=== PATIENT | male | born 1985 | race Two or more races ===

== ENCOUNTER 2017-06-13 02:34 | Emergency (ER) | payer OTHER ==
[2017-06-13 02:40] VITALS: BP 157/101; PULSE 67; RESP 20; TEMP 97.5; O2SAT 97
[2017-06-13] MEDS ORDERED: DEXAMETHASONE 10 MG/ML VIAL PO ONE (03:02)
--- NOTE | 2017-06-13 03:02 | EDPHY ---
H & P Stated Complaint: fever x 2 days, sore throat, pain on roof of mouth Time Seen by Provider: 06/13/17 02:50 HPI/ROS: HPI The patient presents with sore throat for the last 2 days which has been intermittent, moderate in severity and associated with subjective fevers. He also describes a pain on the roof of his mouth that started in the similar time course. He denies any toothache. He denies any sick contacts.. REVIEW OF SYSTEMS Constitutional: No fever, no chills. Eyes: No discharge. ENT: Positive for sore throat Cardiovascular: No chest pain, no palpitations. Respiratory: No cough, no shortness of breath. Gastrointestinal: No abdominal pain, no vomiting. Genitourinary: No hematuria. Musculoskeletal: No back pain. Skin: No rashes. Neurological: No headache. PMHx: Hypertension, no diabetes Soc Hx: No drug use PHYSICAL General Appearance: Alert, no distress Eyes: Pupils equal and round no pallor or injection ENT, Mouth: Mucous membranes moist, posterior pharynx is erythematous without exudates, uvula is midline, hard palate of the mouth is nontender to palpation with no areas of fluctuance or erythema Respiratory: There are no retractions, lungs are clear to auscultation Cardiovascular: Regular rate and rhythm Gastrointestinal: Abdomen is soft and non-tender, no masses, bowel sounds normal Neurological: A&O, moves all extremities Skin: Warm and dry, no rashes Musculoskeletal: Neck is supple non tender Extremities: symmetrical, full range of motion Psychiatric: Patient is oriented X 3, there is no agitation Source: Patient Exam Limitations: No limitations - Medical/Surgical History Hx Asthma: No Hx Chronic Respiratory Disease: No Hx Diabetes: No Hx Cardiac Disease: No Hx Renal Disease: No Hx Cirrhosis: No Hx Alcoholism: No Hx HIV/AIDS: No Hx Splenectomy or Spleen Trauma: No Other PMH: htn, kidney problem - Social History Smoking Status: Never smoked Constitutional: Initial Vital Signs Temperature (C) 36.4 C 06/13/17 02:37 Heart Rate 67 06/13/17 02:37 Respiratory Rate 20 06/13/17 02:37 Blood Pressure 157/101 H 06/13/17 02:37 O2 Sat (%) 97 06/13/17 02:37 O2 Delivery Mode Room Air Allergies/Adverse Reactions: No Known Allergies Allergy (Verified 06/13/17 02:37) Home Medications: Medication Instructions Recorded Unknown Blood Pressure Medication 01/26/15 Unknown Kidney Medication 01/26/15 predniSONE 60 mg PO DAILY #15 tab 01/26/15 Medical Decision Making Differential Diagnosis: This is a 31-year-old male with hypertension who presents with 2 days of sore throat, subjective fevers, pain to the roof of his mouth. On exam, he has normal vital signs except for elevated blood pressure which is known for him, his posterior pharynx is erythematous without exudate. Differential diagnosis includes dental abscess, strep pharyngitis, viral pharyngitis, less likely due space neck infection. Given the patient does not meet CENTOR criteria, I feel viral pharyngitis is the most likely diagnosis given his erythematous pharynx. I will treat him with a dose of Decadron here and have given him instructions for ibuprofen and Tylenol. He will be discharged home with follow up as needed. - Data Points Medications Given: Discontinued Medications Dexamethasone (Decadron Injection) 10 mg PO EDNOW ONE Stop: 06/13/17 03:03 Last Admin: 06/13/17 03:15 Dose: 10 mg Departure - Departure Disposition: Home, Routine, Self-Care Clinical Impression: Acute pharyngitis Qualifiers: Pharyngitis/tonsillitis etiology: unspecified etiology Qualified Code(s): J02.9 - Acute pharyngitis, unspecified Condition: Good Instructions: Pharyngitis (ED) Additional Instructions: You should see your doctor in 1-2 days if your sore throat is not better. Referrals: Lily Cherry PA [Primary Care Provider] - As per Instructions
== END 2017-06-13 03:18 | disposition home or self-care (01) ==
DX: J02.9 Acute pharyngitis, unspecified (principal); I10 Essential (primary) hypertension
CPT/HCPCS: J1100

== ENCOUNTER 2017-11-23 16:30 | Inpatient (IN) | payer OTHER ==
[2017-11-23] MEDS ORDERED: NS 1,000 ML IV ONE (16:54)
--- NOTE | 2017-11-23 17:07 | EDPHY ---
H & P Stated Complaint: hyperkalemia Time Seen by Provider: 11/23/17 16:49 HPI/ROS: CHIEF COMPLAINT: Hyperkalemia HISTORY OF PRESENT ILLNESS: The patient is a 32-year-old man with a history of malignant hypertension with resultant chronic renal insufficiency as well as CHF. He had routine lab work done yesterday and his wellness nurse was called today by [facility] stating that his potassium was 6.4. The patient was told to come to the ER. He states that he is asymptomatic. His wellness nurse is Dr. Jones. His nephrology clinic did send paperwork over including lab work from yesterday that states his potassium was 4.8. REVIEW OF SYSTEMS: Constitutional: denies: chills, fever, recent illness, recent injury EENTM: denies: blurred vision, double vision, nose congestion Respiratory: denies: cough, shortness of breath Cardiac: denies: chest pain, irregular heart rate, lightheadedness, palpitations Gastrointestinal/Abdominal: denies: abdominal pain, diarrhea, nausea, vomiting, blood streaked stools Genitourinary: denies: dysuria, frequency, hematuria, pain Musculoskeletal: denies: joint pain, muscle pain Skin: denies: lesions, rash, jaundice, bruising Neurological: denies: headache, numbness, paresthesia, tingling, dizziness, weakness Hematologic/Lymphatic: denies: blood clots, easy bleeding, easy bruising Immunologic/allergic: denies: HIV/AIDS, transplant EXAM: GENERAL: Well-appearing, well-nourished and in no acute distress. HEAD: Atraumatic, normocephalic. EYES: Pupils equal round and reactive to light, extraocular movements intact, sclera anicteric, conjunctiva are normal. ENT: TMs normal, nares patent, oropharynx clear without exudates. Moist mucous membranes. NECK: Normal range of motion, supple without lymphadenopathy or JVD. LUNGS: Breath sounds clear to auscultation bilaterally and equal. No wheezes rales or rhonchi. HEART: Regular rate and rhythm without murmurs, rubs or gallops. ABDOMEN: Soft, nontender, normoactive bowel sounds. No guarding, no rebound. No masses appreciated. BACK: No CVA tenderness, no spinal tenderness, step-offs or deformities EXTREMITIES: Normal range of motion, no pitting or edema. No clubbing or cyanosis. NEUROLOGICAL: Cranial nerves II through XII grossly intact. Normal speech, normal gait. 5/5 strength, normal movement in all extremities, normal sensation PSYCH: Normal mood, normal affect. SKIN: Warm, dry, normal turgor, no visible rashes or lesions. Source: Patient Exam Limitations: No limitations - Personal History Current Tetanus/Diphtheria Vaccine: Yes Current Tetanus Diphtheria and Acellular Pertussis (TDAP): Yes - Medical/Surgical History Hx Asthma: No Hx Chronic Respiratory Disease: No Hx Diabetes: No Hx Cardiac Disease: No Hx Renal Disease: Yes Hx Cirrhosis: No Hx Alcoholism: No Hx HIV/AIDS: No Hx Splenectomy or Spleen Trauma: No Other PMH: htn, kidney problem - Family History Significant Family History: No pertinent family hx - Social History Smoking Status: Never smoked Alcohol Use: Sober Drug Use: None Constitutional: Initial Vital Signs Temperature (C) 36.9 C 11/23/17 16:40 Heart Rate 67 11/23/17 16:40 Respiratory Rate 16 11/23/17 16:40 Blood Pressure 135/91 H 11/23/17 16:40 O2 Sat (%) 96 11/23/17 16:40 O2 Delivery Mode Room Air Allergies/Adverse Reactions: No Known Allergies Allergy (Verified 11/23/17 16:38) Home Medications: Medication Instructions Recorded Calcium Carbonate [Tums 500MG (*)] 500 mg PO BIDMEAL 11/23/17 Carvedilol [Coreg (*)] 25 mg PO BIDMEAL 11/23/17 Cholecalciferol Vit D3 [Vitamin D3 2,000 units PO DAILY 11/23/17 (*)] Furosemide [Lasix 40 MG (*)] 40 mg PO DAILY 11/23/17 Lisinopril [Zestril 10 mg (*)] 10 mg PO DAILY 11/23/17 Sodium Bicarbonate [Na Bicarb 650 1,300 mg PO TID 11/23/17 MG (RX)] amLODIPine BESYLATE [Amlodipine 10 mg PO DAILY 11/23/17 Besylate] Medical Decision Making - Diagnostics EKG Interpretation: An EKG obtained and was read and documented in trace view. Please see trace view for full reading and report. Sinus rhythm, no peaked T-waves ED Course/Re-evaluation: 5:30 p.m. the patient's potassium is elevated and his creatinine as well. I will give him IV fluids and Lasix and admit to the medical service. I discussed the case with Dr. Collette Mcdonald who agrees. I have paged [facility]. 5:50 p.m. I discussed the case with Dr. Gaviria who will consult. Differential Diagnosis: Partial list of the Differential diagnosis considered include but were not limited to; hyperkalemia, renal insufficiency, dehydration and although unlikely based on the history and physical exam, I also considered heart failure , infection. Critical Care Time: Critical care time spent by me, Dr. Lance exclusive with this patient was 35 minutes, exclusive of the PA time exclusive of procedures. The organ system that was at risk was cardiovascular and I gave IV fluids, monitoring, admission to prevent worsening of the patient's condition - Data Points Laboratory Results: Laboratory Results 11/23/17 17:05 11/23/17 17:05 Medications Given: Amlodipine Besylate (Norvasc) 10 mg PO DAILY DRU Stop: 05/23/18 08:59 Last Admin: 11/24/17 08:57 Dose: 10 mg Calcium Carbonate (Tums) 500 mg PO BIDMEAL DRU Stop: 05/23/18 07:59 Last Admin: 11/24/17 08:57 Dose: 500 mg Carvedilol (Coreg) 25 mg PO BIDMEAL DRU Stop: 05/23/18 07:59 Last Admin: 11/24/17 08:59 Dose: 25 mg Cholecalciferol (Vitamin D) 2,000 units PO DAILY DRU Stop: 05/23/18 08:59 Last Admin: 11/24/17 08:59 Dose: 2,000 units Furosemide (Lasix Injection) 80 mg IVP BIDDIUR DRU Stop: 05/23/18 14:59 Last Admin: 11/24/17 15:49 Dose: 80 mg Heparin Sodium (Porcine) (Heparin Sc Injection) 5,000 unit SC Q8 DRU Stop: 05/22/18 21:59 Last Admin: 11/24/17 15:51 Dose: 5,000 unit Sodium Bicarbonate (Na Bicarb) 1,950 mg PO TID DRU Stop: 05/22/18 21:59 Last Admin: 11/24/17 15:50 Dose: 1,950 mg Discontinued Medications Furosemide (Lasix Injection) 40 mg IVP EDNOW ONE Stop: 11/23/17 17:43 Last Admin: 11/23/17 17:58 Dose: 40 mg Furosemide (Lasix Injection) 80 mg IVP ONCE ONE Stop: 11/24/17 09:57 Last Admin: 11/24/17 11:47 Dose: 80 mg Sodium Chloride (Ns) 1,000 mls @ 0 mls/hr IV ONCE ONE; Wide Open PRN Reason: Protocol Stop: 11/23/17 16:55 Last Admin: 11/23/17 17:58 Dose: 1,000 mls Sodium Polystyrene Sulfonate (Kayexalate) 30 gm PO ONCE ONE Stop: 11/23/17 18:57 Last Admin: 11/23/17 22:28 Dose: 30 gm Departure - Departure Disposition: [facility] Clinical Impression: Hyperkalemia, Renal insufficiency Condition: Fair
[2017-11-23 17:19] LABS: PLATELET COUNT 252 10^3/uL (150-400)
--- NOTE | 2017-11-23 17:24 | CPEKG ---
Heart Rate: 70 RR Interval: 857 P-R Interval: 196 QRSD Interval: 100 QT Interval: 396 QTC Interval: 428 P [place]: 24 QRS [place]: 25 T Wave [place]: 30 EKG Severity - ABNORMAL ECG - EKG Impression: SINUS RHYTHM EKG Impression: INFERIOR INFARCT, OLD Electronically Signed By: Osvaldo Lance 23-Nov-2017 17:27:29
[2017-11-23] MEDS ORDERED: FUROSEMIDE 40 MG/4 ML VIAL IVP ONE (17:42)
[2017-11-23] MEDS ORDERED: SODIUM POLY SULF 15 GM/60 ML BOTTLE PO ONE (18:56)
[2017-11-23] MEDS ORDERED: ACETAMINOPHEN 325 MG TAB PO PRN (19:12)
[2017-11-23] MEDS ORDERED: ONDANSETRON 4 MG/2 ML VIAL IVP PRN (19:12)
[2017-11-23] MEDS ORDERED: hydrALAZINE 20 MG/ML VIAL IVP PRN (19:16)
--- NOTE | 2017-11-23 19:42 | GHP ---
[f rep st] HISTORY AND PHYSICAL DATE OF ADMISSION: 11/23/2017 CHIEF COMPLAINT: Abnormal labs. HISTORY: The patient is a 32-year-old male with a known history of chronic kidney disease, following with Dr. Jones. He had routine laboratory studies done yesterday. Potassium was found to be 6.4, so he was called to come to the emergency room. He is completely asymptomatic. He denies any chest pain or shortness of breath. There is no lower extremity edema. He denies any noncompliance with h is medications. He denies any recent nausea, vomiting or decreased p.o. intake. I spoke with Dr. Wicho lazo, who reveals that the patient is known to be approaching end-stage renal disease for quite so me time, and they were proceeding towards peritoneal dialysis as an outpatient. PAST MEDICAL HISTORY: 1. Chronic kidney disease approaching end-stage renal disease. 2. Malignant hypertension. 3. Congestive heart failure, ejection fraction 33%. 4. Nonischemic dilated cardiomyopathy. MEDICATIONS: Please see computerized record for full detailed list. ALLERGIES: No known drug allergies. SOCIAL HISTORY: No smoking. No alcohol. He lives with his . REVIEW OF SYSTEMS: Complete review of systems obtained. Review of systems is negative for constitut ional, HEENT, GI, pulmonary, cardiovascular, , hematology, skin, musculoskeletal, endocrine, psych, except for positives and negatives as in HPI. FAMILY HISTORY: Reviewed and noncontributory to presenting complaint. PHYSICAL EXAMINATION: GENERAL: Well-developed, well-nourished male, in no acute distress. VITAL SI GNS: Temperature 36.9, pulse 67, blood pressure 135/91, saturating 96% on room air. HEENT: Normal conjunctivae. Pupils equal and reactive to light. ENT: Normal ears and nose. Hearing intact. Nor mal lips and teeth. Oropharynx moist neck. Trachea midline. No thyromegaly. CHEST: Normal respir atory effort. Lungs clear to auscultation bilaterally. CARDIOVASCULAR: Regular rate and rhythm. N o murmur. No lower extremity edema. ABDOMEN: Soft, nontender. No hepatosplenomegaly. SKIN: Warm , dry, and intact. No rash. MUSCULOSKELETAL: No cyanosis or clubbing. Strength 5/5, upper and low er extremities. NEUROLOGIC: Cranial nerves intact. Normal sensation to light touch. PSYCH: Alert and oriented x3. Normal affect. Normal judgment and insight. Normal memory. LABORATORY DATA: White count 7.2, hematocrit 39.8, platelets 252. Sodium 140, potassium 6.3, chlori de 108, bicarb 18, BUN 60, creatinine 6.3, glucose 89. EKG viewed by me. My personal interpretation is normal sinus rhythm, no peaked T-waves. ASSESSMENT/PLAN: 1. End-stage renal disease. I spoke with Dr. Gaviria. They are moving towards peritoneal dialysi s initiation soon. He does not yet have a catheter per Dr. Gaviria. Give him a dose of Kayexalate tonight, as well as initiating him on oral sodium bicarbonate and will hold his lisinopril. 2. Hyperkalemia, treatment as above per Dr. Gaviria. No more emergent treatment needed at this ti me as he does not have any EKG changes. We will check q.6 hour BMPs. 3. Malignant hypertension. Need to clarify his home medication regimen. 4. Congestive heart failure. Ejection fraction 33% due to nonischemic cardiomyopathy. Need to hold his MARJ inhibitor secondary to hyperkalemia. CODE STATUS: Full. ADMISSION STATUS: Will admit to inpatient as he is medically complex. Anticipate greater than 2 mid nights required for stabilization. DVT PROPHYLAXIS: He is moderate risk. Will place him on subcu heparin. /[id number]/MODL
--- NOTE | 2017-11-23 21:03 | GCON ---
[f rep st] CONSULTATION DATE OF CONSULTATION: 11/23/2017 REASON FOR CONSULTATION: Worsening renal failure, hyperkalemia. HISTORY OF PRESENT ILLNESS: The patient is a very pleasant, 32-year-old male with a past medical his tory significant for known advanced chronic kidney disease secondary to malignant hypertension, along with a nonischemic dilated cardiomyopathy, who now presents with hyperkalemia. History is obtained from the patient, as well as the medical staff and the medical record. The patient is followed by Dr Bernadette Jones of [facility]. He has known CKD 5 and is active on the [facility] t ransplant list. He originally presented to [facility] with congestive heart failure and malignant hypertension in 2008. He has known low-grade proteinuria. His creatinine has been gradually rising over time. He has had discussions relating to eventual initiation of peritoneal dialysis. At the time of his last visit in August, his creatinine was 5.66, his potassium was 5.4, and his bi carb level was 18. His protein-creatinine ratio was 2220 mg of protein per gram creatinine. His blo od pressure at the time of that visit was 128/80. Because of the patient's cardiomyopathy and his re nal failure, he is maintained on Lan inhibition. He has been instructed on following a low-potassium diet. Today, the patient received routine labs as an outpatient. On these, his potassium was elevated at 6 .4, his creatinine was also in the 6s. Relating to this, he was referred to the emergency room. In the emergency room, the patient is asymptomatic and normotensive. His potassium is 6.2. An EKG does not show significant hyperkalemic changes. Overall, the patient is doing okay. He does not report any significant new issues. He does admit to having some difficulty following his low-potassium diet. He states he has been compliant with medic ations. As related to the above issues, we are asked by Dr. Lance to assist in the patient's renal diagnosi s and management. PAST MEDICAL HISTORY: 1. Chronic kidney disease. Believed secondary to malignant hypertension. 2. Hypertension. 3. Nonischemic dilated cardiomyopathy. 4. Metabolic acidosis. 5. History of hyperkalemia. 6. Active on [facility] transplant list since 2015. SURGICAL HISTORY: No past surgeries. FAMILY HISTORY: Negative for renal disease or heart disease. SOCIAL HISTORY: The patient lives in [place]. He is . He has 4 children. He works with [employer]. He does not smoke cigarettes. He rarely drinks alcohol. ALLERGIES: No known drug allergies. HOME MEDICATIONS: Tums 500 mg p.o. b.i.d., vitamin D 2000 units b.i.d., lisinopril 10 mg daily. Car vedilol 25 mg twice b.i.d., Lasix 40 mg daily, sodium bicarbonate 1950 mg b.i.d. Amlodipine 10 mg da [place]. REVIEW OF SYSTEMS: A 12 systems review was obtained. It is negative except for some mild edema. PHYSICAL EXAM: GENERAL: At time of exam, the patient is pleasant appropriate and alert. VITAL SIGN S: Temperature afebrile, pulse 68, blood pressure 137/102. HEENT: Eyes: Sclerae clear. Oropharynx clear. NECK: No lymphadenopathy, thyromegaly, or jugular v enous distention at 45 degree supine angle. LUNGS: Clear auscultation bilaterally. CARDIOVASCULAR: Regular rate and rhythm without murmurs, gallops, or rubs. ABDOMEN: Nontender. No organomegaly. /RECTAL: Deferred. EXTREMITIES: Trace to 1+ lower extremity edema. INTEGUMENT: Generally aura r. NEURO: No focal findings. LABORATORY STUDIES: White count 7.2, hematocrit 39.8, platelets 252. Sodium 140, potassium 6.3, bic arb 18, creatinine 6.3. IMPRESSION AND PLAN: 1. Hyperkalemia and advancing renal failure. The patient presents this evening with a potassium of 6.3. He is asymptomatic. He is mildly volume overloaded. His electrocardiogram does not show hyper kalemic changes. 2. For now, the patient will be placed on a potassium-restricted diet. His lisinopril will be held. He was given 1 dose of intravenous Lasix and he will be maintained on his home oral diuretics. His sodium bicarbonate level will be Increased. He will be given 1 dose of Kayexalate. Repeat labs acssandra l be followed up tonight. At this point, the patient will likely need to be discharged off his lisin opril. He may need substitution with a different medication for afterload reduction relating to his cardiomyopathy. Serious consideration should be made for placement of his peritoneal dialysis cathet er with plans on beginning this soon. He will be educated further on a low-potassium diet. The lisset ent does not appear to have indications for emergent dialysis tonight and I believe his potassium fish uld decrease over the course of the evening with the above measures. 3. Cardiomyopathy. This has been stable. Again, he will need afterload reduction if his angiotensi n-converting enzyme inhibitor is discontinued. He should be maintained on his beta blockade. He cou ld use some additional diuresis. 4. Anemia. This is quite mild, relative to his kidney dysfunction. We will continue to monitor suzette miranda. Thank you for allowing us participate in this gentleman's care. We will continue to follow him close ly with you. /[id number]/MODL
[2017-11-23] MEDS: SODIUM BICARBONATE 650 MG TAB PO SCH (22:28)
[2017-11-23] MEDS: HEPARIN 5,000 UNIT/0.5 ML SYR SC SCH (22:29)
[2017-11-24 04:17] LABS: PLATELET COUNT 230 10^3/uL (150-400)
[2017-11-24 04:26] LABS: INR 1.04 (0.83-1.16); PROTIME(PATIENT) 13.8 SEC (12.0-15.0)
[2017-11-24] MEDS: HEPARIN 5,000 UNIT/0.5 ML SYR SC SCH ×2 (05:59→15:51)
[2017-11-24] MEDS: CALCIUM CARBONATE 500 MG CHEWABLE TAB PO SCH ×2 (08:57→17:59)
[2017-11-24] MEDS: SODIUM BICARBONATE 650 MG TAB PO SCH ×3 (08:57→21:45)
[2017-11-24] MEDS: CARVEDILOL 25 MG TAB PO SCH ×2 (08:59→17:59)
[2017-11-24] MEDS: CHOLECALCIFEROL VIT D3 1,000 UNITS TAB PO SCH (08:59)
--- NOTE | 2017-11-24 09:11 | PDMN ---
Medical Necessity Medical necessity: M326 - ARF A-2 days: Serum Cr > 4, hyperkalemia( 6.3) cont to monitor, ESRD consider peritoneal dialysis, malignant HTN, monitoring, CHF - EF 33% due to nonischemic cardiomyopathy, hold MARJ inhibitor 2ndary to Hyperkalemia, - anticipate > 2 midnights ongoing med [facility] care
--- NOTE | 2017-11-24 09:49 | ASMTCASEMG ---
Living Arrangements What is your living Answers: With Spouse arrangement? Who do you live with? Type Of Residence What kind of residence do Answers: House you live in? Discharge Plan Comments Coordination Status Comments Notes: Pt is a 32 y/o man admitted for hyperkalemia and renal insufficiency. Pt will most likely d/c independent when medically stable. No therapies ordered at this time. CM available for changes. Plan: Independent Date Signed: 11/24/2017 09:49 AM Electronically Signed By:ANA Almonte
[2017-11-24] MEDS ORDERED: FUROSEMIDE 100 MG/10 ML VIAL IVP ONE (09:56)
--- NOTE | 2017-11-24 13:22 | SOAPPROG ---
SOAP Progress Note Assessment/Plan: Assessment/Plan: The patient is a 32 y/o M with a known h/o malignant HTN and CKD Stage IV/V who presented yesterday for hyperkalemia, now improved with medical therapy. CKD Stage V -Cr currently 6.2mg/dL with eGFR of 10 -already on [facility] txp list -consulted Dr. Leigh to see patient today for possible PD catheter placement on this admission -no acute indication for HD today Hyperkalemia -will need to follow a more strict low K+/renal diet -continue lasix and may need to double dose so 120-160mg po BID as outpatient until starting dialysis -continue to monitor on telemetry -hold MARJ inhibition -hold kayexalate for now, will school guidance counselor patient and decide if needs as home regimen AGMA -2/2 to renal failure -started bicarb tabs BID -goal >20mg/dL HTN/vol -h/o malignant HTN, BP now controlled -holding MARJ, continue CCB, BB, and may consider more afterload reduction such as hydralazine BMD -currently on vitamin D and TUMS for phos binder -monitor daily labs 11/24/17 13:24 Subjective: Patient made 2L of UO overnight and feeling ok today. No chest pain, palpitations or SOB. Discussed PD catheter consult and that surgeon will be seeing him. Objective: Vital Signs Temp Pulse Resp BP Pulse Ox 37.0 C 70 16 125/99 H 95 11/24/17 11:49 11/24/17 11:49 11/24/17 11:49 11/24/17 11:49 11/24/17 11:49 Laboratory Results 11/24/17 03:52 11/24/17 03:52 11/23/17 11/24/17 11/25/17 05:59 05:59 05:59 Intake Total 2000 500 Output Total 2100 400 Balance -100 100 PT 13.8 SEC (12.0-15.0) 11/24/17 03:52 INR 1.04 (0.83-1.16) 11/24/17 03:52 Physical Exam - Physical Exam General Appearance: WD/WN, alert, no apparent distress EENT: PERRL/EOMI, normal ENT inspection, TMs normal Neck: non-tender, full range of motion, supple Respiratory: chest non-tender, lungs clear, normal breath sounds Cardiac/Chest: normal peripheral pulses, regular rate, rhythm Abdomen: normal bowel sounds, non-tender, soft Back: Normal inspection Skin: normal color, warm/dry Extremities: normal range of motion, non-tender Neuro/Psych: no motor/sensory deficits, alert, normal mood/affect, oriented x 3 ICD10 Worksheet Patient Problems: Problems Problem Status Onset Hyperkalemia Acute Renal insufficiency Acute
--- NOTE | 2017-11-24 14:20 | SOAPPROG ---
SOAP Progress Note Assessment/Plan: Assessment: 32-year-old male with increasing renal insufficiency In need of PD catheter/risks and options fully discussed Abdomen soft no previous surgery Potassium improved Plan: PD catheter in the a.m. 11/24/17 14:18 Objective: Vital Signs Temp Pulse Resp BP Pulse Ox 37.0 C 70 16 125/99 H 95 11/24/17 11:49 11/24/17 11:49 11/24/17 11:49 11/24/17 11:49 11/24/17 11:49 Laboratory Results 11/24/17 03:52 11/24/17 03:52 11/23/17 11/24/17 11/25/17 05:59 05:59 05:59 Intake Total 2000 500 Output Total 2100 400 Balance -100 100 PT 13.8 SEC (12.0-15.0) 11/24/17 03:52 INR 1.04 (0.83-1.16) 11/24/17 03:52 ICD10 Worksheet Patient Problems: Problems Problem Status Onset Hyperkalemia Acute Renal insufficiency Acute
[2017-11-24] MEDS: FUROSEMIDE 100 MG/10 ML VIAL IVP SCH (15:49)
--- NOTE | 2017-11-24 19:57 | GCON ---
[f rep st] CONSULTATION DATE OF CONSULTATION: 11/24/2017 HISTORY OF PRESENT ILLNESS: The patient is a 32-year-old male who is having worsening progressive re nal failure. He was admitted for elevated potassium which has been corrected. He is in need of justino toneal dialysis catheter to, hopefully, initiate dialysis in the next 4-6 weeks. His renal failure m ay be on the basis of hypertension, but he was unclear. He is presently stable. Risks and options w ere fully discussed and he wishes to proceed with peritoneal dialysis catheter placement. PAST MEDICAL HISTORY: Includes chronic renal failure, hypertension, hyperkalemia, nonischemic cardio myopathy. He has had no other major surgeries or hospitalizations. FAMILY HISTORY: Noncontributory. PHYSICAL EXAMINATION: GENERAL: Reveals an alert 32-year-old male in no acute distress. HEAD/NECK: Benign without icterus, adenopathy or oral lesions. CHEST: Clear. CARDIAC: Regular rhythm. ABDO MEN: Soft and nontender without surgical scars or hernias. EXTREMITIES: Benign. Full pulses. Ful l range of motion. IMPRESSION: Progressive chronic renal failure. PLANS: Peritoneal dialysis catheter placement. Risks and options have been fully discussed and he w paras to proceed. /[id number]/MODL
--- NOTE | 2017-11-24 20:06 | HOSPPROG ---
Hospitalist Progress Note Assessment/Plan: Assessment: 32-year-old male presents with acute hyperkalemia in the setting of end-stage renal disease Plan: 1. End-stage renal disease. Patient with known chronic kidney disease stage 5, and EGFR around 10, previously on MARJ-inhibitor, diuretics, sodium bicarb tabs, labs in the outpatient setting demonstrating a potassium 6.5 and increase of creatinine level to greater than 6 -suspect the patient's condition is progressing, he continues to produce urine -discussed with Dr. Prosper Benítez, she recommends IV Lasix high dose for hyperkalemia -Tums and vitamin-D as phos binders -peritoneal dialysis catheter to be placed by Dr. Leigh tomorrow -no indication for emergent renal replacement therapy -patient will require outpatient peritoneal dialysis follow-up and arrangements 2. Acute hyperkalemia. Secondary to end-stage renal disease, responded to a combination of IV Lasix as well as Kayexalate -give high-dose IV Lasix, continue to monitor -if worsening despite Lasix, give Kayexalate again -continue monitor on telemetry, no evidence of peaked T-waves, personally interpreted 3. Metabolic acidosis. Acute on chronic, secondary to renal failure, increased sodium bicarb tabs 4. Anemia of chronic kidney disease. No evidence of active bleeding 5. Chronic systolic congestive heart failure. No evidence of acute exacerbation , currently holding MARJ-inhibitor given his worsening renal function and hyperkalemia -continue monitor volume status Diet. Renal, NPO in a.m. Prophylaxis. High risk patient, heparin subcu, hold in a.m. Code. Full Disposition. Anticipated discharge is uncertain, peritoneal dialysis catheter placement tomorrow, further recommendations per Renal. High-level medical complexity, high risk patient for worsening morbidity and/or mortality, secondary to the issues outlined above, specifically his acute hyperkalemia. Subjective: Patient reports that he has continued to urinate, had loose bowel movement after Kayexalate last night Objective: Vital Signs Temp Pulse Resp BP Pulse Ox 37 C 88 15 124/95 H 94 11/24/17 19:21 11/24/17 19:21 11/24/17 19:21 11/24/17 19:21 11/24/17 19:21 Laboratory Results 11/24/17 03:52 11/24/17 03:52 11/23/17 11/24/17 11/25/17 05:59 05:59 05:59 Intake Total 1999 1749 Output Total 2099 1700 Balance -100 50 PT 13.8 SEC (12.0-15.0) 11/24/17 03:52 INR 1.04 (0.83-1.16) 11/24/17 03:52 - Physical Exam Constitutional: no apparent distress, appears nourished, not in pain, No uncomfortable Cardiovascular: systolic murmur (106 at sternum), edema (Trace bilateral lower extremity), No irregularly irregular, No JVD, No tachycardia Respiratory: no respiratory distress, no rales or rhonchi, clear to auscultation Gastrointestinal: normoactive bowel sounds, soft, non-tender abdomen, no palpable masses, No distension Neurologic: AAOx3, sensation intact bilaterally, No weakness Psychiatric: interacting appropriately, not anxious, not encephalopathic, thought process linear ICD10 Worksheet Patient Problems: Problems Problem Status Onset Hyperkalemia Acute Renal insufficiency Acute
[2017-11-25] MEDS ORDERED: ceFAZolin 2 GM/DEXTROSE 100 ML IV ONE (06:00)
[2017-11-25] MEDS ORDERED: ceFAZolin 2 GM/SWFI 2 GM/20 ML SYR IVP ONE ×2 (06:00)
[2017-11-25] MEDS: SODIUM BICARBONATE 650 MG TAB PO SCH ×3 (09:57→19:50)
[2017-11-25] MEDS: CALCIUM CARBONATE 500 MG CHEWABLE TAB PO SCH ×2 (09:57→18:09)
[2017-11-25] MEDS: CHOLECALCIFEROL VIT D3 1,000 UNITS TAB PO SCH (09:58)
[2017-11-25] MEDS: CARVEDILOL 25 MG TAB PO SCH ×2 (09:58→18:10)
[2017-11-25] MEDS: FUROSEMIDE 100 MG/10 ML VIAL IVP SCH ×2 (09:59→15:44)
[2017-11-25] MEDS ORDERED: BUPIVACAINE 0.5% 30 ML SDV ONE (11:00)
[2017-11-25] MEDS ORDERED: LIDOCAINE 1% 300 MG/30 ML SDV ONE (11:00)
[2017-11-25] MEDS ORDERED: HEPARIN 5,000 UNIT/0.5 ML SYR ONE ×2 (11:07→12:14)
[2017-11-25] MEDS ORDERED: NS 1,000 ML IV ONE (11:18)
[2017-11-25] MEDS ORDERED: HEPARIN 50,000 UNIT/10 ML VIAL ONE (11:52)
[2017-11-25] MEDS ORDERED: MIDAZOLAM 2 MG/2 ML VIAL IVP ONE (12:00)
--- NOTE | 2017-11-25 12:39 | PDANEPAE ---
ANE History of Present Illness Peritoneal dialysis cath ANE Past Medical History - Cardiovascular History Hx Hypertension: Yes Hx Arrhythmias: No Hx Chest Pain: No Hx Coronary Artery / Peripheral Vascular Disease: No Hx CHF / Valvular Disease: No Hx Palpitations: No - Pulmonary History Hx COPD: No Hx Asthma/Reactive Airway Disease: No Hx Oxygen in Use at Home: No Hx Sleep Apnea: No Sleep Apnea Screening Result - Last Documented: Negative - Endocrine History Hx Diabetes: No Hypothyroid: No Hyperthyroid: No Obesity: mild - Chronic Pain History Chronic Pain: No ANE Review of Systems Review of Systems: - Exercise capacity METS (RN): 4 METS ANE Patient History - Allergies Allergies/Adverse Reactions: No Known Allergies Allergy (Verified 11/23/17 16:38) - Home Medications Home Medications: Calcium Carbonate [Tums 500MG (*)] 500 mg PO BIDMEAL 11/23/17 [Last Taken Unknown] Carvedilol [Coreg (*)] 25 mg PO BIDMEAL 11/23/17 [Last Taken Unknown] Cholecalciferol Vit D3 [Vitamin D3 (*)] 2,000 units PO DAILY 11/23/17 [Last Taken Unknown] Furosemide [Lasix 40 MG (*)] 40 mg PO DAILY 11/23/17 [Last Taken Unknown] Lisinopril [Zestril 10 mg (*)] 10 mg PO DAILY 11/23/17 [Last Taken Unknown] Sodium Bicarbonate [Na Bicarb 650 MG (RX)] 1,300 mg PO TID 11/23/17 [Last Taken Unknown] amLODIPine BESYLATE [Amlodipine Besylate] 10 mg PO DAILY 11/23/17 [Last Taken Unknown] - NPO status NPO Status: no food or drink >8 hours NPO Since - Liquids (Date): 11/25/17 NPO Since - Liquids (Time): 00:00 NPO Since - Solids (Date): 11/24/17 NPO Since - Solids (Time): 20:00 - Smoking Hx Smoking Status: Never smoked - Alcohol Use Alcohol Use: Sober ANE Labs/Vital Signs - Labs Result Diagrams: 11/24/17 03:52 11/25/17 03:46 - Vital Signs Blood Pressure: 132/89 Heart Rate: 80 Respiratory Rate: 18 O2 Sat (%): 95 Height: 175.26 cm Weight: 99.1 kg ANE Physical Exam - Airway Neck exam: FROM Mallampati Score: Class 1 - Pulmonary Pulmonary: no respiratory distress, no rales or rhonchi - Cardiovascular Cardiovascular: regular rate and rhythym - ASA Status ASA Status: III ANE Anesthesia Plan Anesthesia Plan: general endotracheal anesthesia
[2017-11-25] MEDS ORDERED: POVIDONE-IODINE 30 GM OINTTUBE TP ONE (12:44)
[2017-11-25] MEDS ORDERED: fentaNYL 250 MCG/5 ML INJ ONE (12:50)
[2017-11-25] MEDS ORDERED: ONDANSETRON 4 MG/2 ML VIAL ONE (12:51)
[2017-11-25] MEDS ORDERED: ROCURONIUM 50 MG/5 ML VIAL ONE (12:51)
[2017-11-25] MEDS ORDERED: PROPOFOL/EMULSION 500 MG/50 ML BOTTLE IV ONE (12:51)
[2017-11-25] MEDS ORDERED: PROPOFOL 200 MG/20 ML VIAL ONE (12:51)
[2017-11-25] MEDS ORDERED: DEXAMETHASONE 4 MG/ML VIAL ONE (12:51)
[2017-11-25] MEDS ORDERED: LIDOCAINE 2% 5 ML SDV ONE (12:52)
[2017-11-25] MEDS ORDERED: ceFAZolin 2 GM/SWFI 20 ML SYR IVP ONE (12:54)
[2017-11-25] MEDS ORDERED: GLYCOPYRROLATE 0.2 MG/1 ML VIAL ONE ×4 (12:58→13:42)
[2017-11-25] MEDS: BACITRACIN ZINC 14.2 GM OINTTUBE TP ONE ×2 (13:13→13:34)
[2017-11-25] MEDS ORDERED: NEOSTIGMINE METHYLSULFATE 3 MG/3 ML SYR ONE (13:42)
--- NOTE | 2017-11-25 13:46 | POSTOPPROG ---
Post Op Note Date of Operation: 11/25/17 Surgeon: Sean Leigh Anesthesiologist: Avi Anesthesia: GET(General Endotracheal) Pre-op Diagnosis: Renal failure Post-op Diagnosis: same Indication: same Procedure: laparoscopic peritoneal dialysis catheter placement Inf/Abcess present in the surg proc area at time of surgery?: No EBL: Minimal
[2017-11-25] MEDS ORDERED: DIAZEPAM 5 MG/ML 1 ML SYR IVP PRN (14:02)
[2017-11-25] MEDS ORDERED: OXYCODONE/APAP 5/325 TAB PO PRN (14:02)
[2017-11-25] MEDS ORDERED: LABETALOL HCL 5 MG/ML 20 ML MDV IVP PRN (14:02)
[2017-11-25] MEDS ORDERED: NALOXONE HCL 0.4 MG/ML INJ IVP PRN (14:02)
[2017-11-25] MEDS ORDERED: PROMETHAZINE HCL 25 MG/ML INJ IVP PRN (14:02)
--- NOTE | 2017-11-25 14:04 | POSTANESTH ---
Post Anesthetic Evaluation Cardiovascular Status: Similar to Pre-Op Cond Respiratory Status: Normal, Stable Level of Consciousness/Mental Status: Can Participate in Eval Pain Control: Adequate, Prn Tx Ordered Nausea/Vomiting Control: Adequate, Prn Tx Ordered Complications Possibly Related to Anesthesia: None Noted
[2017-11-25] MEDS ORDERED: fentaNYL 100 MCG/2 ML INJ ONE (14:05)
[2017-11-25] MEDS: fentaNYL 100 MCG/2 ML INJ IVP PRN ×2 (14:06→14:11)
[2017-11-25] MEDS ORDERED: HYDROmorphONE/DILAUDID 1 MG/ML INJ ONE (14:08)
[2017-11-25] MEDS: HYDROmorphONE/DILAUDID 1 MG/ML INJ IVP PRN ×2 (14:44→14:54)
--- NOTE | 2017-11-25 15:45 | SOAPPROG ---
SOAP Progress Note Assessment/Plan: Assessment/Plan: CKD 5: Pt with no emergent dialysis needs, got PD catheter placed today. Lytes ok, volume status improved. - No emergent need for HD. - Pt had PD catheter placed today, needs 2 weeks to heal and then can be used. - Will arrange close f/u with Dr. Jones. - Avoid hypotension and nephrotoxins. Hypervolemia: improved, will switch to PO Lasix and monitor. Hyperkalemia: K down to 5.0, will continue Lasix as above and pt to follow low K diet. Pt also on sodium bicarb. Metabolic acidosis: Will continue sodium bicarb tabs. JESUS: Phos 5.5, will continue phos binder. Subjective: No acute events overnight. Pt had PD catheter placed today, just came back to room. He denies any abdominal pain. He states that swelling is improved and overall he is feeling ok. He is working on low K diet. Objective: Vital Signs Temp Pulse Resp BP Pulse Ox 36.8 C 80 16 116/90 H 97 11/25/17 14:47 11/25/17 12:39 11/25/17 15:00 11/25/17 14:46 11/25/17 15:00 Laboratory Results 11/24/17 03:52 11/25/17 03:46 11/24/17 11/25/17 11/26/17 05:59 05:59 05:59 Intake Total 1999 1999 800 Output Total 2100 2740 20 Balance -100 -740 780 PT 13.8 SEC (12.0-15.0) 11/24/17 03:52 INR 1.04 (0.83-1.16) 11/24/17 03:52 General: alert and oriented, no acute distress Eyes; EOMI, PERRL OP: Clear CV: RRR Resp: nonlabored respirations on RA Ext: trace edema BLE neuro: CN II-XII grossly intact, no asterixis psych: cooperative, appropriate mood and affect ICD10 Worksheet Patient Problems: Problems Problem Status Onset Hyperkalemia Acute Renal insufficiency Acute
--- NOTE | 2017-11-25 16:16 | HOSPPROG ---
Hospitalist Progress Note Assessment/Plan: * ESRD -peritoneal dialysis catheter placed today - veronica for use in 2 weeks -no indication for acute inpatient dialysis * Hyperkalemia -s/p Kayexalate -improved with DC lisinopril, increase lasix, increase bicarb * Chronic systolic CHF - EF 30% - non-ischemic cardiomyopathy -DC ACEI due to hyperkalemia * Malignant HTN -coreg, norvasc Subjective: no complaints. Objective: Vital Signs Temp Pulse Resp BP Pulse Ox 36.6 C 72 16 121/97 H 90 L 11/25/17 15:30 11/25/17 15:30 11/25/17 15:30 11/25/17 15:30 11/25/17 15:30 Laboratory Results 11/24/17 03:52 11/25/17 03:46 11/24/17 11/25/17 11/26/17 05:59 05:59 05:59 Intake Total 2000 2000 800 Output Total 2100 2740 20 Balance -100 -740 780 PT 13.8 SEC (12.0-15.0) 11/24/17 03:52 INR 1.04 (0.83-1.16) 11/24/17 03:52 d/w Dr. Frances amrtin to discharge in am tele reviewed - NSR - Physical Exam Constitutional: no apparent distress, appears nourished, not in pain Cardiovascular: regular rate and rhythym, no murmur, rub, or gallop Respiratory: no respiratory distress, no rales or rhonchi, clear to auscultation Gastrointestinal: normoactive bowel sounds, soft, non-tender abdomen, no palpable masses Skin: no rashes or abrasions, no fluctuance, no induration Neurologic: AAOx3, sensation intact bilaterally Psychiatric: interacting appropriately, not anxious, not encephalopathic, thought process linear ICD10 Worksheet Patient Problems: Problems Problem Status Onset Hyperkalemia Acute Renal insufficiency Acute
[2017-11-25] MEDS: FUROSEMIDE 40 MG TAB PO SCH (16:24)
[2017-11-25] MEDS: OXYCODONE/APAP 5/325 TAB PO PRN ×2 (18:10→22:17)
[2017-11-26] MEDS: HEPARIN 5,000 UNIT/0.5 ML SYR SC SCH (06:02)
[2017-11-26 07:55] VITALS: TEMP 98.6
[2017-11-26] MEDS: CALCIUM CARBONATE 500 MG CHEWABLE TAB PO SCH (08:44)
[2017-11-26] MEDS: CHOLECALCIFEROL VIT D3 1,000 UNITS TAB PO SCH (08:45)
[2017-11-26] MEDS: FUROSEMIDE 40 MG TAB PO SCH ×2 (08:45→15:07)
[2017-11-26] MEDS: CARVEDILOL 25 MG TAB PO SCH (08:45)
[2017-11-26] MEDS: SODIUM BICARBONATE 650 MG TAB PO SCH ×2 (08:46→15:07)
[2017-11-26 11:19] VITALS: BP 129/94; PULSE 78; RESP 15; O2SAT 94
[2017-11-26] MEDS ORDERED: SODIUM POLY SULF 15 GM/60 ML BOTTLE PO ONE (13:32)
[2017-11-26] MEDS: OXYCODONE/APAP 5/325 TAB PO PRN (14:53)
--- NOTE | 2017-11-27 03:07 | GDS ---
[f rep st] DISCHARGE SUMMARY DISCHARGE DIAGNOSES: 1. End-stage renal disease due to malignant hypertension. 2. Hyperkalemia. 3. Chronic systolic congestive heart failure with ejection fraction of 30%. 4. Nonischemic cardiomyopathy. HISTORY: The patient is a 32-year-old male with a known longstanding history of chronic kidney disea se due to malignant hypertension. He is followed closely as an outpatient by Dr. Jose. He has miranda d progression of his renal failure and is now approaching end-stage renal disease. Dr. Jose did o utpatient laboratory studies and found him to be hyperkalemic with a potassium of 6.3, so told him to come to the emergency room. The patient is otherwise completely asymptomatic, although he is starti ng to develop some edema. Plan is to proceed with peritoneal dialysis. Dr. Leigh placed a peritonea l dialysis catheter during this hospitalization. It will be okay for full use in 2 weeks, although N ephrology does plan to use it to a small degree this upcoming week. There was no indication for acut e inpatient dialysis. His hyperkalemia was treated with Kayexalate. We also discontinued his lisinopril, increased his Las ix, and increased his bicarbonate. On the day of discharge, his potassium is 5.5, and I did give him one more dose of Kayexalate. His creatinine is up to 7.6. Nephrology is aware of these laboratory studies, and still felt he was stable for discharge. They will follow him up closely this upcoming at the [facility] to start initiating some low amount peritoneal dialysis. He was educated with the assistance of a rfid systems architect and the property staff accountant regarding low-potassiu m diet. DISCHARGE MEDICATIONS: Please see computerized record for full detailed list. New medications: 1. Lasix increased to 120 mg p.o. b.i.d. 2. Sodium bicarbonate increased to 1950 mg p.o. t.i.d. Lisinopril discontinued. ADDITIONAL DISCHARGE INSTRUCTIONS: 1. Call the Per[facility] Wednesday morning. 2. Follow up with Dr. Leigh in 10 days regarding new peritoneal dialysis catheter placement. 3. Low-potassium diet. Greater than 30 minutes' time was spent arranging this discharge. Patient was seen and examined by cesia lainez on the day of discharge. /[id number]/MODL
--- NOTE | 2017-11-28 12:57 | GOP ---
[f rep st] OPERATIVE REPORT DATE OF OPERATION: 11/25/2017 SURGEON: Sean Leigh MD ENGINEERING ASSISTANT: Lily Oviedo NP. PREOPERATIVE DIAGNOSIS: Chronic renal failure. POSTOPERATIVE DIAGNOSIS: Chronic renal failure. PROCEDURE PERFORMED: Laparoscopic peritoneal dialysis catheter placement. FINDINGS: DESCRIPTION OF PROCEDURE: Patient was taken to the operating room where he received satisfactory gen eral endotracheal anesthesia. He was placed in supine position, prepped and draped in usual sterile fashion. A periumbilical incision was made. Dissection was carried down through subcutaneous tissue to the fascia which was grasped with towel clip and then a Veress needle was inserted. Pneumoperito neum was established. A 10 mm trocar was introduced. Laparoscope introduced. Adequate visualizatio n was obtained. A 2nd trocar was placed in the left lower quadrant and camera was switched to that p ort. The catheter was then introduced via the 10 mm trocar and it was positioned in the pelvis. Thi s actually required placement of a 2nd 5 mm trocar for better manipulation of the catheter to get it positioned appropriately. This was done in the right paramedian area. The 2 mm trocar was removed a nd the Dacron pledget was positioned under the fascia, which was closed with 0 Vicryl interrupted sut ures. Wound was infiltrated with 0.5% Marcaine and the catheter was brought out through the left low er quadrant trocar site. The intraperitoneal portion of the catheter was positioned well in the pelv is and the remaining trocar was removed. The pelvis was filled with 500 cc of saline, and 375 cc wer e returned without difficulty. The catheter was then affixed with is permanent fixers. The main inc ision was closed with 3-0 Vicryl for the subcutaneous tissue and 4-0 Monocryl subcuticular stitch for the skin. All layers infiltrated with 0.5% Marcaine. The right-sided trocar site was closed with 4 -0 Monocryl subcuticular stitch for the skin. All layers infiltrated with 0.5% Marcaine. The exit s ite was dressed with some Betadine gauze and 2 x 2 and OpSite. He tolerated the procedure well. His catheter worked well. He was taken to the recovery room in good condition. There were no complicat ions. /[id number]/MODL
== END 2017-11-26 15:34 | disposition home or self-care (01) | DRG 981 ==
LOC: OBSVTOIN 17:40 → F2W 21:24
PROVIDERS: ADMIT Internal Medicine; ATTEND Internal Medicine
PROC: 0WHG43Z Insertion of Infusion Device into Peritoneal Cavity, Percutaneous Endoscopic Approach (ICD-10-PCS; principal; 2017-11-25 11:15)
DX: E87.5 Hyperkalemia (principal); I13.2 Hypertensive heart and chronic kidney disease with heart failure and with stage 5 chronic kidney disease, or end stage renal disease; N18.6 End stage renal disease; I50.22 Chronic systolic (congestive) heart failure; I42.9 Cardiomyopathy, unspecified; D63.1 Anemia in chronic kidney disease
CPT/HCPCS: C1750; J0690; J1100; J1170; J1642; J1644; J1940; J2250; J2405; J2704; J2710; J3010

== ENCOUNTER 2017-11-28 10:02 | Emergency (ER) | payer OTHER ==
[2017-11-28 10:08] VITALS: RESP 18; TEMP 97.9
--- NOTE | 2017-11-28 10:35 | EDPHY ---
H & P Stated Complaint: Dressing @ peritoneal dialysis cath site needs to be changed Time Seen by Provider: 11/28/17 10:21 HPI/ROS: CHIEF COMPLAINT: Bleeding from wound HISTORY OF PRESENT ILLNESS: 32-year-old male arrives via private vehicle. Patient has a history of progressive renal failure and was admitted recently to the hospital for hyperkalemia. At that time he had peritoneal dialysis catheter placed with plan to initiate dialysis next 4-6 weeks. He was discharged from the ER few days ago. He returns to the ER stating that there has been some blood around his peritoneal dialysis catheter site however not in the catheter itself. He otherwise states that he is feeling well with no fever no chills no nausea no vomiting, normal urinary output, no back or flank pain. REVIEW OF SYSTEMS: A ten point review of systems was performed and is negative with the exception of the items mentioned in the HPI PAST MEDICAL & SURGICAL HISTORY: Renal failure, recent placement of peritoneal dialysis catheter, hypertension SOCIAL HISTORY:Nonsmoker PHYSICAL EXAM (Prior to examination, patient consented to physical exam, hands were washed and my usual and customary physical exam procedures followed) 1) GENERAL: Well-developed, well-nourished, alert and oriented. Appears to be in no acute distress. Smiling, shakes my hand, appears well 2) HEAD: Normocephalic, atraumatic 3) HEENT: Pupils equal, round, reactive to light bilaterally. Sclera anicteric. 4) NECK: Full range of motion, no meningeal signs. 5) LUNGS: Clear auscultation bilaterally, no wheezes, no rhonchi, no retractions. 6) HEART: Regular rate and rhythm, no murmur, no heave, no gallop. 7) ABDOMEN: No guarding, no rebound, no focal tenderness,. Peritoneal dialysis catheter in place with subacute blood under the dressing. Dressing is taken down there is no active bleeding. The catheter itself has no blood or fluid in it. 8) MUSCULOSKELETAL: Moving all extremities, no focal areas of tenderness, no obvious trauma. No peripheral edema or discoloration. 9) BACK: No CVA tenderness. 10) SKIN: No rash, no petechiae. 11) Psychiatric: Patient is oriented X 3, there is no agitation. DIFFERENTIAL DIAGNOSIS: In no particular order including but not limited to wound infection, peritonitis, postsurgical wound bleeding - Personal History Current Tetanus Diphtheria and Acellular Pertussis (TDAP): Yes - Medical/Surgical History Hx Asthma: No Hx Chronic Respiratory Disease: No Hx Diabetes: No Hx Cardiac Disease: No Hx Renal Disease: Yes Hx Cirrhosis: No Hx Alcoholism: No Hx HIV/AIDS: No Hx Splenectomy or Spleen Trauma: No Other PMH: htn, peritineal dialysis - Social History Smoking Status: Never smoked Constitutional: Initial Vital Signs Temperature (C) 36.6 C 11/28/17 10:05 Heart Rate 75 11/28/17 10:05 Respiratory Rate 18 11/28/17 10:05 Blood Pressure 141/111 H 11/28/17 10:05 O2 Sat (%) 98 11/28/17 10:05 O2 Delivery Mode Room Air Allergies/Adverse Reactions: No Known Allergies Allergy (Verified 11/28/17 10:03) Home Medications: Medication Instructions Recorded Calcium Carbonate [Tums 500MG (*)] 500 mg PO BIDMEAL 11/23/17 Carvedilol [Coreg (*)] 25 mg PO BIDMEAL 11/23/17 Cholecalciferol Vit D3 [Vitamin D3 2,000 units PO DAILY 11/23/17 (*)] amLODIPine BESYLATE [Amlodipine 10 mg PO DAILY 11/23/17 Besylate] Furosemide [Lasix 40 MG (*)] 120 mg PO BID@0900,1500 #180 tab 11/26/17 Sodium Bicarbonate [Na Bicarb] 1,950 mg PO TID #180 tab 11/26/17 Medical Decision Making ED Course/Re-evaluation: This patient's dressing was taken down observed for a period of time in the ER and has had no active bleeding. He otherwise states that he is feeling well. Will hold on further diagnostic studies at this time. Dressing has been changed. Recommend he contact Dr. Sean Leigh tomorrow (Wednesday). In the meantime if you develop abdominal pain, fever, chills or any other symptoms to return to ER immediately. Care of patient under supervision of secondary supervising physician Dr Cardona . Departure - Departure Disposition: Home, Routine, Self-Care Clinical Impression: Encounter for surgical wound dressing change Condition: Good Instructions: Peritoneal Dialysis Catheter Care (ED) Additional Instructions: Return to the ER if you develop abdominal pain, fevers, further bleeding or any other symptoms that concern you. Regrese al cuarto de emergencias si desarolla dolor abdominal, fiebre, sangrado adicional o cualquier otro sintoma que le preocupe. Referrals: Sean Leigh MD [Medical Doctor] - 1 day without fail
[2017-11-28 11:22] VITALS: BP 152/112; PULSE 76; O2SAT 97
== END 2017-11-28 11:34 | disposition home or self-care (01) ==
DX: Z48.01 Encounter for change or removal of surgical wound dressing (principal); I10 Essential (primary) hypertension

== ENCOUNTER → 2018-01-26 | Outpatient (CLI) | payer OTHER | LOC: FIMAGING 18:00 → FLAB 18:00 → EDSTATUS 18:01 | PROVIDERS: ATTEND Internal Medicine Nephrology | DX: Z11.9 Encounter for screening for infectious and parasitic diseases, unspecified (principal) ==